=== PATIENT | male | born 1965 | race Caucasian/White ===

== ENCOUNTER 2020-07-04 10:25 | Emergency (ER) | payer BC, OTHER ==
[~2020-07-04] VITALS: Ht 172.7 cm; Wt 81.6 kg
[2020-07-04 10:31] VITALS: BP 139/91
[2020-07-04] MEDS ORDERED: FLUORESCEIN SOD 1 MG TEST STRIP ONE (11:11)
[2020-07-04] MEDS ORDERED: TETRACAINE HCL 0.5% OPTH(EYE) SOLN 4ML ONE (11:11)
[2020-07-04] MEDS ORDERED: FLUORESCEIN SOD 1 MG TEST STRIP EACHEYE ONE (11:15)
[2020-07-04] MEDS ORDERED: TETRACAINE HCL 0.5% OPTH(EYE) SOLN 4ML EACHEYE ONE (11:15)
== END 2020-07-04 12:06 | disposition home or self-care (01) ==
LOC: ER 10:25
DX: S05.01XA Injury of conjunctiva and corneal abrasion without foreign body, right eye, initial encounter (principal); H10.31 Unspecified acute conjunctivitis, right eye; J32.0 Chronic maxillary sinusitis; I10 Essential (primary) hypertension; E78.5 Hyperlipidemia, unspecified; Z88.0 Allergy status to penicillin; X58.XXXA Exposure to other specified factors, initial encounter; Y93.89 Activity, other specified; Y92.89 Other specified places as the place of occurrence of the external cause; Y99.8 Other external cause status
CPT/HCPCS: 70450